=== PATIENT | male | born 1995 | race Caucasian/White ===

== ENCOUNTER 2017-05-29 09:13 | Emergency (ER) | payer BC ==
[2017-05-29 09:28] VITALS: BP 116/63
--- NOTE | 2017-05-29 09:34 | UC ---
Skin Complaint HPI - HPI Summary HPI Summary: Pt noticed three ticks on his trunk this morning. Is sure they were not there during the day yesterday, but [place]. - History of Current Complaint Hx Obtained From: Patient Onset/Duration: Sudden Onset Skin Exposure Onset/Duration: Hours Ago - <24hrs Current Severity: None Pain Intensity: 0 Pain Scale Used: 0-10 Numeric Location: Other - Mid back and abdomen Associated Signs & Symptoms: Negative: Nausea, Vomiting, Weakness, Fever, Rash, Drainage, Red Streaks Related History: Insect Bite/Sting <Anjel Zambrano - Last Filed: 05/29/17 09:43> <Naz Oliva - Last Filed: 05/29/17 11:16> - History of Current Complaint Chief Complaint: UCSkin Time Seen by Provider: 05/29/17 09:23 Stated Complaint: SKIN COMPLAINT 3 TICKS - Allergy/Home Medications Allergies/Adverse Reactions: Allergies Allergy/AdvReac Type Severity Reaction Status Date / Time No Known Allergies Allergy Verified 05/29/17 09:27 Review of Systems Constitutional: Negative Skin: Other - 3 areas of redness consistent with tick bites Respiratory: Negative Cardiovascular: Negative Gastrointestinal: Negative Motor: Negative Neurovascular: Negative Neurological: Negative Psychological: Negative Is Patient Immunocompromised?: No All Other Systems Reviewed And Are Negative: Yes <Anjel Zambrano - Last Filed: 05/29/17 09:43> PMH/Surg Hx/FS Hx/Imm Hx Previously Healthy: Yes - Surgical History Surgical History: None - Family History Known Family History: Positive: None - none known history of cardio-vascular disorders - Social History Alcohol Use: Weekly Substance Use Type: None Smoking Status (MU): Never Smoked Tobacco <Anjel Zambrano - Last Filed: 05/29/17 09:43> Physical Exam Triage Information Reviewed: Yes Appearance: Well-Appearing, Well-Nourished Vital Signs: Initial Vital Signs Temp 98.3 F 05/29/17 09:24 Pulse 61 05/29/17 09:24 Resp 12 05/29/17 09:24 BP 116/63 05/29/17 09:24 Pulse Ox 97 05/29/17 09:24 Vital Signs Reviewed: Yes Respiratory Exam: Normal Respiratory: Positive: Chest non-tender, Lungs clear, Normal breath sounds Cardiovascular Exam: Normal Cardiovascular: Positive: RRR, No Murmur Neurological Exam: Normal Neurological: Positive: Alert Psychological Exam: Normal Psychological: Positive: Age Appropriate Behavior Skin Exam: Other Skin: Positive: Other - 3 areas of erythema approx 2-3mm in diameter with a scab in the center. One periumbilical. One LLQ. And one upper back. All appear consistent with tick bites. No streaking, drainage, or remaining insect material noted. <Anjel Zambrano - Last Filed: 05/29/17 09:43> Vital Signs: Initial Vital Signs Temp 98.3 F 05/29/17 09:24 Pulse 61 05/29/17 09:24 Resp 12 05/29/17 09:24 BP 116/63 05/29/17 09:24 Pulse Ox 97 05/29/17 09:24 <Naz Oilva - Last Filed: 05/29/17 11:16> Course/Dx - Course Course Of Treatment: Ticks were removed by patient before presenting today. Pt is sure the ticks were not on him >24hr. Discussed that the risk of disease transmission is low - he would like one day tx with doxycycline. - Differential Diagnoses - Skin Complaint Differential Diagnoses: Cellulitis, Scabies - Diagnoses Provider Diagnoses: Tick bite to trunk <Anjel Zambrano - Last Filed: 05/29/17 09:43> Discharge <Anjel Zambrano - Last Filed: 05/29/17 09:43> <Naz Oliva - Last Filed: 05/29/17 11:16> - Discharge Plan Condition: Stable Disposition: HOME Prescriptions: DOXYcycline CAP(*) [DOXYcycline 100MG CAP(*)] 100 mg PO DAILY #2 cap Patient Education Materials: Tick Bite (ED) Referrals: No Primary Care Phys,NOPCP [Primary Care Provider] - Additional Instructions: Monitor areas of bites for any signs of increasing swelling or redness. Made aware of signs/symptoms of early lyme disease to look out for in the coming weeks to months. Attestation Statement User Type: Provider - I was available for consult. This patient was seen by the [facility]. The patient was not presented to, seen by, or examined by me. -Leon <Naz Oliva - Last Filed: 05/29/17 11:16>
== END 2017-05-29 09:45 | disposition home or self-care (01) ==
LOC: UCCORT 09:13
DX: L03.311 Cellulitis of abdominal wall (principal); B86 Scabies; W57.XXXA Bitten or stung by nonvenomous insect and other nonvenomous arthropods, initial encounter
CPT/HCPCS: 99212; G0463

== ENCOUNTER 2017-09-08 08:16 | Emergency (ER) | payer BC ==
--- NOTE | 2017-09-08 10:35 | UC ---
FLU HPI - HPI Summary HPI Summary: pt c/o sudden onset of nasal congestion, body aches, fever, chills, fatigue sinus pressure and pain X 3 days. - History of Current Complaint Chief Complaint: UCGeneralIllness Stated Complaint: RICHARDS/ST Time Seen by Provider: 09/08/17 10:12 Hx Obtained From: Patient Onset/Duration: Sudden Onset, Lasting Days, Still Present, Worse Since - onset Severity Currently: Mild Severity Initially: Moderate Pain Intensity: 7 Associated Signs & Symptoms: Positive: Fever, Myalgia, Nasal Congestion, Headache Related Hx: Possible Flu/Infectious Exposure - Allergy/Home Medications Allergies/Adverse Reactions: Allergies Allergy/AdvReac Type Severity Reaction Status Date / Time No Known Allergies Allergy Verified 09/08/17 08:33 Home Medications: Home Medications Acetaminophen [Acetaminophen Extra Stren] 500 mg PO Q4H PRN 09/08/17 [History Confirmed 09/08/17] Atfjawf-Uieldxsmgyuip-Chdlvwiu [Excedrin Migraine 250-250-65 mg] 2 tab PO Q12HR PRN 09/08/17 [History Confirmed 09/08/17] PMH/Surg Hx/FS Hx/Imm Hx Previously Healthy: Yes - Surgical History Surgical History: None - Family History Known Family History: Positive: None - none known history of cardio-vascular disorders, Unknown - Social History Occupation: Employed Full-time Lives: With Family Alcohol Use: Weekly Substance Use Type: None Smoking Status (MU): Never Smoked Tobacco Have You Smoked in the Last Year: No Review of Systems Constitutional: Fever, Chills, Fatigue Skin: Negative Eyes: Negative ENT: Sinus Congestion, Other Respiratory: Negative Cardiovascular: Negative Gastrointestinal: Negative Genitourinary: Negative Motor: Negative Neurovascular: Negative Musculoskeletal: Myalgia Neurological: Headache Psychological: Negative Is Patient Immunocompromised?: No All Other Systems Reviewed And Are Negative: Yes Physical Exam Triage Information Reviewed: Yes Appearance: Ill-Appearing Vital Signs: Initial Vital Signs Temp 99 F 09/08/17 08:31 Pulse 94 09/08/17 08:31 Resp 16 09/08/17 08:31 BP 111/68 09/08/17 08:31 Pulse Ox 99 09/08/17 08:31 Vital Signs Reviewed: Yes Eye Exam: Normal ENT Exam: Other ENT: Positive: Nasal congestion, Sinus tenderness Dental Exam: Normal Neck exam: Normal Respiratory Exam: Normal Cardiovascular Exam: Normal Musculoskeletal Exam: Normal Neurological Exam: Normal Psychological Exam: Normal Skin Exam: Normal Flu Course/Dx - Course Course Of Treatment: rapid flu: positive A - Differential Dx/Diagnosis Differential Diagnosis/HQI/PQRI: Bronchitis, Influenza Provider Diagnoses: INfluenza A. sinusitis Discharge - Discharge Plan Condition: Stable Disposition: HOME Prescriptions: Amoxicillin PO (*) [Amoxicillin 875 MG (*)] 875 mg PO Q12H #20 tab Oseltamivir CAP* [Tamiflu CAP*] 75 mg PO Q12H #10 cap Pseudoephedrine-Guaifenesin [Mucinex D 60-600 mg] 1 tab PO DAILY #10 tab Patient Education Materials: Sinusitis (ED), Influenza (ED) Referrals: [facility] [Outside] No Primary Care Phys,NOPCP [Primary Care Provider] - Additional Instructions: Please follow up with your PCP or return to clinic as needed. If symptoms worsen please seek care at the closest ER.
[2017-09-08 10:45] VITALS: BP 124/74
== END 2017-09-08 10:45 | disposition home or self-care (01) ==
LOC: UCCORT 08:16
DX: J09.X2 Influenza due to identified novel influenza A virus with other respiratory manifestations (principal); J32.9 Chronic sinusitis, unspecified; Z72.89 Other problems related to lifestyle
CPT/HCPCS: 87502; 99212; G0463

== ENCOUNTER 2017-12-25 18:21 | Emergency (ER) | payer BC ==
[2017-12-25 19:04] VITALS: BP 115/68
--- NOTE | 2017-12-25 19:20 | UC ---
Ear Complaint HPI - HPI Summary HPI Summary: Bilateral cerumen impaction - History of Current Complaint Hx Obtained From: Patient Onset/Duration: Gradual Onset Pain Intensity: 0 <Tania Kasper - Last Filed: 12/25/17 19:35> <Naz Oliva - Last Filed: 12/26/17 09:23> - History of Current Complaint Chief Complaint: UCEar Stated Complaint: EARS PLUGGED Time Seen by Provider: 12/25/17 19:17 - Allergies/Home Medications Allergies/Adverse Reactions: Allergies Allergy/AdvReac Type Severity Reaction Status Date / Time No Known Allergies Allergy Verified 12/25/17 18:58 PMH/Surg Hx/FS Hx/Imm Hx Previously Healthy: Yes - Surgical History Surgical History: None - Family History Known Family History: Positive: None - none known history of cardio-vascular disorders, Unknown - Social History Occupation: Employed Full-time Lives: With Family Alcohol Use: Weekly Substance Use Type: None Smoking Status (MU): Never Smoked Tobacco Have You Smoked in the Last Year: No <Tania Kasper - Last Filed: 12/25/17 19:35> Review of Systems Constitutional: Negative Skin: Negative Eyes: Negative ENT: Ear Ache - bilateral cerumen impaction Respiratory: Negative Cardiovascular: Negative Gastrointestinal: Negative Genitourinary: Negative Motor: Negative Neurovascular: Negative Musculoskeletal: Negative Neurological: Negative Psychological: Negative Is Patient Immunocompromised?: No All Other Systems Reviewed And Are Negative: Yes <Tania Kasper - Last Filed: 12/25/17 19:35> Physical Exam Triage Information Reviewed: Yes Appearance: Well-Appearing, No Pain Distress, Well-Nourished Vital Signs: Initial Vital Signs Temp 98.1 F 12/25/17 18:59 Pulse 78 12/25/17 18:59 Resp 16 12/25/17 18:59 BP 115/68 12/25/17 18:59 Pulse Ox 99 12/25/17 18:59 Vital Signs Reviewed: Yes Eye Exam: Normal ENT Exam: Normal ENT: Positive: Normal ENT inspection, Hearing grossly normal, Pharynx normal, Nasal congestion, TMs normal - after flushing prior was impacted with cerumen, Uvula midline. Negative: Trismus, Muffled voice, Hoarse voice, Sinus tenderness Dental Exam: Normal Neck exam: Normal Neck: Positive: Supple, Nontender Respiratory Exam: Normal Respiratory: Positive: Chest non-tender, No respiratory distress, No accessory muscle use Cardiovascular Exam: Normal Cardiovascular: Positive: RRR, Pulses Normal, Brisk Capillary Refill Musculoskeletal Exam: Normal Musculoskeletal: Positive: Strength Intact, ROM Intact, No Edema Neurological Exam: Normal Neurological: Positive: Alert, Muscle Tone Normal Psychological Exam: Normal Psychological: Positive: Normal Response To Family, Age Appropriate Behavior Skin Exam: Normal <Tania Kasper - Last Filed: 12/25/17 19:35> Vital Signs: Initial Vital Signs Temp 98.1 F 12/25/17 18:59 Pulse 78 12/25/17 18:59 Resp 16 12/25/17 18:59 BP 115/68 12/25/17 18:59 Pulse Ox 99 12/25/17 18:59 <Naz Oliva - Last Filed: 12/26/17 09:23> Re-Evaluation - Re-Evaluation First Eval Change: Improved - cerumen impaction resolved <Tania Kasper - Last Filed: 12/25/17 19:35> Ear Complaint Course/Dx - Course Course Of Treatment: d/c to follow with pcp prn - Differential Dx/Diagnosis Provider Diagnoses: resolved b/l cerumen impaction <Tania Kasper - Last Filed: 12/25/17 19:35> Discharge - Sign-Out/Discharge Documenting (check all that apply): Discharge/Admit/Transfer - Billing Disposition and Condition Condition: STABLE Disposition: HOME <Tania Kasper - Last Filed: 12/25/17 19:35> - Billing Disposition and Condition Condition: STABLE Disposition: HOME <Naz Oliva - Last Filed: 12/26/17 09:23> - Discharge Plan Condition: Stable Disposition: HOME Patient Education Materials: Cerumen Impaction (ED) Referrals: NADIRA Morin [Medical Doctor] - If Needed Attestation Statement User Type: Provider - I was available for consult. This patient was seen by the [facility]. The patient was not presented to, seen by, or examined by me. -Leon <Naz Oliva - Last Filed: 12/26/17 09:23>
== END 2017-12-25 19:46 | disposition home or self-care (01) ==
LOC: UCCORT 18:21
DX: H61.23 Impacted cerumen, bilateral (principal)
CPT/HCPCS: 99213; G0463

== ENCOUNTER 2018-03-17 18:39 | Emergency (ER) | payer BC ==
[2018-03-17 19:29] VITALS: BP 122/65
--- NOTE | 2018-03-17 19:34 | UC ---
Knee Pain HPI - HPI Summary HPI Summary: Patient is a 22-year-old , without any significant past medical history who present today with for left knee pain since today morning . Denies any prior injury of the knee. Pt reports that jumped off the back of a truck this morning and injured L knee. [place] pain immediately. But denies hearing any pop. Finished his work day and came for evaluation. Pt iced knee for approx 1 hour and has taken 800mg ibuprofen at noon. Pain is generalized, there is associated swelling and he has a sensation of knee giving out but denies any locking He is not able to put weight on left knee and is limping. 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 [employer] - History of Current Complaint Chief Complaint: UCTrauma Stated Complaint: LEFT KNEE INJURY/PAIN Time Seen by Provider: 03/17/18 19:25 Hx Obtained From: Patient Onset/Duration: Sudden Onset Severity Currently: Moderate Pain Intensity: 3 - Allergies/Home Medications Allergies/Adverse Reactions: Allergies Allergy/AdvReac Type Severity Reaction Status Date / Time No Known Allergies Allergy Verified 03/17/18 19:29 Home Medications: Home Medications Ibuprofen [Ibu-200] 800 mg PO Q6H 03/17/18 [History Confirmed 03/17/18] PMH/Surg Hx/FS Hx/Imm Hx Previously Healthy: Yes Other Endocrine History: negative Other Cardiovascular History: negative Other Respiratory History: negative Other GI/ History: negative Other Neurological History: negative Other Psychological History: negative Other Cancer History: negative - Surgical History Surgical History: None - Family History Known Family History: Positive: None - none known history of cardio-vascular disorders, Unknown - Social History Alcohol Use: Weekly Substance Use Type: None Smoking Status (MU): Never Smoked Tobacco Have You Smoked in the Last Year: No Review of Systems Constitutional: Negative Skin: Negative Eyes: Negative ENT: Negative Respiratory: Negative Cardiovascular: Negative Gastrointestinal: Negative Genitourinary: Negative Motor: Decreased ROM - Left knee Neurovascular: Negative Musculoskeletal: Arthralgia, Decreased ROM, Edema - Left knee swelling Neurological: Negative Is Patient Immunocompromised?: No All Other Systems Reviewed And Are Negative: Yes Physical Exam - Summary Physical Exam Summary: Physical Exam: Const: Appears well. No signs of apparent distress present. Alert and oriented x 3. Musculo: Walks with an antalgic gait Head/Face: Atraumatic, normocephalic on inspection. Eyes: EOMI and PERRLA in both eyes. Conjunctivae clear. No discharge noted ENT: Hearing normal, TM normal appearing bilaterally . Respiratory: Respirations are unlabored. Lungs clear to auscultation bilaterally, no wheezing , rhonchi or rales noted . CVS: Regular rate and Rhythm, S1S2 normal , no murmurs identified. Extremities: Peripheral circulation is grossly normal. Pulses 2+ Abdomen : Soft non tender , nondistended , Bowel sounds present . No guarding , rebound tenderness or rigidity noted. Skin: No lesions or rash located on the upper extremities or on the lower extremities. Neuro: Cranial nerves II to XII intact, motor and sensory intact. DTR Intact bilaterally. Mood is normal. Affect is normal. Left Knee: Insp/Palp: There is effusion.Tenderness medial joint line Strength: Quadriceps 5/5 , No hamstring tightness. ROM: Limited and painful range of motion, inability to actively extend fully, passively full range of motion in extension but limited flexion to 100. Special Tests: Merced test is positive. Valgus stress test at 0 and 30 degrees flexion is negative. Varus stress test at 0 and 30 degrees flexion is negative. Judson's test is painful. Triage Information Reviewed: Yes Vital Signs: Initial Vital Signs Temp 98.5 F 03/17/18 19:24 Pulse 81 03/17/18 19:24 Resp 18 03/17/18 19:24 BP 122/65 03/17/18 19:24 Pulse Ox 100 03/17/18 19:24 Vital Signs Reviewed: Yes Knee Pain Course/Dx - Course Course Of Treatment: During the visit today, we obtained left knee x-rays that showed just effusion and no fracture . We discussed the findings with possible internal derangement of the knee and ligament injury and further plan. He needs to follow up with orthopedics for further evaluation. 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 Patient expressed understanding . - Differential Dx/Diagnosis Provider Diagnoses: Internal derangement of the left knee. Possible ACL injury. Discharge - Sign-Out/Discharge Documenting (check all that apply): Patient Departure - Discharge Plan Condition: Stable Disposition: HOME Patient Education Materials: Swollen Knee Joint (ED), Knee Pain (ED), Knee Immobilizer (ED) Referrals: No Primary Care Phys,NOPCP [Primary Care Provider] - Jan Hooker MD [Medical Doctor] - 2 Days Additional Instructions: Please start using the immobilizer and crutches for ambulation. Start gentle range of motion exercises as tolerated. Ibuprofen as needed for pain, ice 15 minutes at a time 3-4 times a day. Please follow up with orthopedics for the consult in 2 days. Return to Urgent care / ER if symptoms get worse. - Billing Disposition and Condition Condition: STABLE Disposition: Home
--- NOTE | 2018-03-17 20:01 | RAD ---
INDICATION: Left knee injury. TECHNIQUE: 4 views of the left knee were obtained. FINDINGS: The bones are in normal alignment. There is a moderate joint effusion present. No fracture is seen. Joint spaces appear maintained. IMPRESSION: JOINT EFFUSION, NO FRACTURE IS SEEN.
== END 2018-03-17 20:17 | disposition home or self-care (01) ==
LOC: UCCORT 18:39
DX: M23.92 Unspecified internal derangement of left knee (principal); Y93.39 Activity, other involving climbing, rappelling and jumping off; Y92.9 Unspecified place or not applicable
CPT/HCPCS: 99213; G0463